=== PATIENT | female | born 1995 | race Caucasian/White ===

== ENCOUNTER 2025-06-09 01:10 | Emergency (ER) | payer MEDICAID, SELFPAY ==
[2025-06-09 01:11] VITALS: BP 112/81; PULSE 100; RESP 18; TEMP 36.9; O2SAT 97
[2025-06-09 01:13] VITALS: BMI 16.7
--- NOTE | 2025-06-09 01:41 | XR_ITS ---
Examination: Abdomen sonogram, Limited Date and time of exam: June 09, 2025, 0212 hours INDICATION: Right upper abdominal pain beginning 7 hours ago Technique: Real-time camargo scale transabdominal sonographic images of the upper abdomen obtained. Findings: Normal gallbladder Normal common bile duct 0.44 cm Pancreatic head 1.9 cm Liver 12.4 cm no liver lesions Normal hepatopetal portal venous flow Patent IVC IMPRESSION: Normal gallbladder
--- NOTE | 2025-06-09 01:47 | EDNOTE_ITS ---
ED Abdominal Pain RME/HPI General Chief Complaint: Abdominal Pain Stated complaint: EPIGASTRIC CHEST AREA PAIN RADIATING TO BACK Time seen by provider: 06/09/25 01:41 Arrival date/time: 06/09/25 01:10 29F with history of anxiety presents to ED with 1 day of RUQ/epigastric pain and N/V. This has happened before. Patient denies drug/alcohol use and dysuria. Limitations: no limitations Related Data Home Medications ?Medication ?Instructions ?Recorded ?Confirmed Loratadine ODT * (CLARITIN ODT *) 10 mg PO QDAY #0 tab s 09/12/14 Previous Rx's ?Medication ?Instructions ?Recorded vicodin 5/325 1 tab PO q4hprn pain #12 tab s 09/12/14 zofran 4mg odt 1 tab PO q4hprn nausea #8 un its 09/12/14 Allergies Allergy/AdvReac Type Severity Reaction Status Date / Time No Known Allergies Allergy Verified 06/09/25 01:12 Review of Systems Review of Systems Systems Reviewed: All systems reviewed, normal except as documented Gastrointestinal Gastrointestinal: Reports as per HPI, Reports abdominal pain, Reports nausea and Reports vomiting Past Medical History Social History SMOKING STATUS: Never smoker ED Exam General Limitations: Present no limitations General appearance: Present alert and in distress Head Head exam: Present atraumatic Neck Neck exam: Present normal inspection, full ROM and trachea midline Chest Chest inspection: Present normal inspection and symmetric chest wall rise Abdominal Exam Abdominal exam: Present soft Abdominal tenderness: Present RUQ and epigastrium Neurological Exam Neurological exam: Present alert and oriented X3 Psychiatric Psychiatric exam: Present normal affect and normal mood Skin Skin exam: Present warm, dry, intact and normal color Course Quality Measures none Orders Category Date Time Status US gall bladder Stat Exams 06/09/25 01:41 Taken CBC Stat Lab 06/09/25 01:53 Completed CMP [Comprehensive Metabolic Panel] Stat Lab 06/09/25 01:53 Completed Drug Screen,Urine Stat Lab 06/09/25 01:53 Completed HCG Qualitative,Urine Stat Lab 06/09/25 01:53 Completed Lipase Stat Lab 06/09/25 01:53 Completed Urinalysis, C/S if Indicated Stat Lab 06/09/25 01:53 Completed Morphine* Inj Med 06/09/25 01:41 Discontinued 4 mg IV X1 ONE Ondansetron Inj [Zofran Inj] Med 06/09/25 01:41 Discontinued 4 mg IVP X1 ONE Vital Signs Vital signs: Vital Signs Temperature 98.4 F 06/09/25 01:11 Pulse Rate 100 06/09/25 01:11 Respiratory Rate 18 06/09/25 01:11 Blood Pressure 112/81 06/09/25 01:11 Pulse Oximetry (%) 97 06/09/25 01:11 Oxygen Delivery Method Room Air 06/09/25 01:11 O2 at 97% on RA and WNLs Abdominal Pain MDM MDM Narrative MDM Narrative:: 29F with history of anxiety presents to ED with 1 day of RUQ/epigastric pain and N/V. This has happened before. Patient denies drug/alcohol use and dysuria. Physical exam reveals RUQ/epigastric tenderness. Patient is afebrile, alert, but appears to be in pain. Telerad US reveals... No leukocytosis. Lipase normal. CMP remarkable for el evated bili and LFTs. UA contaminated, but will not treat given no dysuria. HCG/tox screen neg. Upon reassessment, pain and nausea gone w/o any intervention. Patient does not want to wait for MRCP and will return in AM. Patient data External records reviewed:: None Clinical information provided by:: patient Social determinants that could affect healthcare access:: none Patient has the following chronic illnesses:: none How is presenting disease/condition affected by chronic disease/condition?: no chronic disease Evaluation data The following diagnostics were reviewed and interpreted by me:: lab results and radiology exam(s) Lab and/or radiology exams considered but not ordered:: ordered Interpretation Summary: above Medications / Prescriptions Medications or Prescriptions considered but not ordered:: ordered Medication administrations:: Medication Administration History Discontinued Medications Morphine Sulfate (Morphine Sulf Inj 4 Mg/Ml Vial) 4 mg IV X1 ONE Stop: 06/09/25 01:42 Last Admin: 06/09/25 04:00 Dose: Not Given Documented By: LAUREEN Non-Admin Reason: Cancelled by Provider Ondansetron HCl (Ondansetron Inj 2 Mg/Ml Inj 2 Ml) 4 mg IVP X1 ONE; Protocol Stop: 06/09/25 01:42 Last Admin: 06/09/25 04:00 Dose: Not Given Documented By: LAUREEN Non-Admin Reason: Cancelled by Provider above Consultations Consultation(s) initiated? (list below): No Diagnosis Differential diagnosis abdominal pain: abdominal pain, acute appendicitis, calculus of kidney, constipation, diverticulitis, gastroenteritis, pancreatitis, small bowel obstruction and other (biliary disease, elevated bilirubin) Most likely diagnosis given after review of the tests above:: elevated bilirubin Admission Indicated Admission indicated?: not indicated Admission Request Was there a request for admission?: No Disposition Plan Disposition Plan: Discharge Discharge Attestation Discharge Attestation: The patient and all family members were given an opportunity to ask questions and understood the discharge instructions. Discharge instructions specifically effects, indications for sooner follow up or return to the emergency department, and the expected course of current diagnosis. Patient condition: Stable Discharge Plan Plan Patient Disposition: HOME (Self Care) Discharge Disposition comment: Stable Prescriptions/Referrals Prescriptions/Med Rec: No Action Loratadine ODT * (CLARITIN ODT *) 10 MG/TAB TAB.RAPDIS 10 mg PO QDAY Qty: 0 vicodin 5/325 1 tab PO q4hprn pain Qty: 12 0RF zofran 4mg odt 1 tab PO q4hprn nausea Qty: 8 0RF Referrals: No Primary/Family,Physician [Primary Care Provider] - In 1 week Problem List Clinical Impression: Elevated bilirubin Patient/Caregiver Discharge Instructions Education Materials: Total Bilirubin (Blood) Additional Instructions: Please follow-up with PCP within 24-48 hours and return immediately if symptoms worsen. Return in AM for MRCP. Print Language: Irish Stand Alone Forms: Patient Portal Info Letter EVELYN/GINNY Supervising Physician GUILLERMO Supervising Physician: Dr. Schmidt
[2025-06-09 02:12] LABS: Collection Type, Urine Clean Catch
[2025-06-09 02:31] LABS: Basophils # (Auto) 0.1 Thou/mm3 (0.0-0.2); Basophils % (Auto) 1 % (0-2.5); Eosinophils # (Auto) 0.1 Thou/mm3 (0.0-0.5); Eosinophils % (Auto) 1 % (0-10); Hematocrit 43.0 % (36.0-46.0); Hemoglobin 14.4 g/dL (12.0-16.0); Immature Granulocytes Auto 0.02 Thou/mm3 (0.00-0.00); Lymphocytes # (Auto) 2.3 Thou/mm3 (1.0-4.8); Lymphocytes % (Auto) 23 % (10-50); Mean Corpuscular HGB Conc 33.5 g/dl (31.0-37.0); Mean Corpuscular Hemoglobin 30.1 pg (25.0-35.0); Mean Corpuscular Volume 90 fL (80-100); Monocytes # (Auto) 0.7 Thou/mm3 (0.0-0.8); Monocytes % (Auto) 7 % (0-12); Neutrophils # (Auto) 6.9 Thou/mm3 (1.8-7.7); Neutrophils % (Auto) 68 % (37-80); Nucleated Red Blood Cell # 0.00 Thou/mm3 (0.00-0.00); Nucleated Red Blood Cell % 0 /100 WBC (0); Platelet Count 298 Thou/mm3 (140-440); RDW Standard Deviation 37.8 fL (36.4-46.3); Red Blood Count 4.78 Miln/mm3 (4.00-5.20); White Blood Count 10.2 Thou/mm3 (3.6-11.0)
[2025-06-09 02:32] LABS: HCG Qualitative,Urine Negative
[2025-06-09 02:36] LABS: Alanine Aminotransferase 212 U/L (10-49); Albumin, Serum 5.0 gm/dL (3.5-5.0); Albumin/Globulin Ratio 2.1 (1.2-2.2); Alkaline Phosphatase 77 U/L (46-116); Anion Gap 10 (7-16); Aspartate Amino Transferase 316 U/L (0-34); BUN/Creatinine Ratio 11 Ratio (12-20); Bilirubin,Total 1.5 mg/dL (0.3-1.2); Blood Urea Nitrogen 10 mg/dL (9-23); Calcium 10.6 mg/dL (8.3-10.6); Calcium (Corrected) 10.6 mg/dL (8.5-10.1); Carbon Dioxide 27.3 mMol/L (20.0-31.0); Chloride 107 mMol/L (98-107); Creatinine (Component) 0.9 mg/dL (0.6-1.3); Estimated Creatinine Clearance 80.7 mL/min (>60); Globulin 2.4 gm/dL (2.3-3.5); Glucose 107 mg/dL (74-106); Lipase 36 U/L (12-53); Osmolality,Calculated 285 (275-295); Potassium 4.0 mMol/L (3.4-5.1); Sodium 144 mMol/L (136-145); Total Protein 7.4 gm/dL (5.7-8.2); eGFR > 60 See Note
[2025-06-09 02:49] LABS: Amorphous Crystals,Urine Present (Absent); Bilirubin,Urine Negative (Negative); Blood,Urine Negative (Negative); Color,Urine Yellow (Lt Yel-Yel); Culture Indicated,Urine Contaminated; Glucose, Urine Negative (Negative); Ketones,Urine Negative (Negative); Leukocyte Esterase,Urine Positive (Negative); Nitrite,Urine Negative (Negative); PH,Urine 8.5 (5.0-7.0); Protein,Urine 1+ (Neg - Trace); RBC,Urine 8 /hpf (0-3); Specific Gravity,Urine 1.020 (1.001-1.035); Squamous Epithelial Cell,Urine 54 /hpf (0-5); Urobilinogen,Urine 4.0 mg/dL (0.0-1.0); WBC,Urine 73 /hpf (0-5)
[2025-06-09 02:52] LABS: Clarity,Urine Turbid (Clear/Hazy)
--- NOTE | 2025-06-09 03:35 | PRELIM_ITS ---
Gallbladder ultrasound. June 09, 2025 0212 hours Clinical history: RUQ pain. Comparison: No prior study is available for comparison. Findings: Gallbladder wall is 2 mm thick. No pericholecystic fluid. No cholelithiasis or gallbladder sludge. Common bile duct is 4 mm in diameter. No choledocholithiasis. Pancreas is unremarkable to the extent visualized. Liver is 12.4 cm long. No focal hepatic lesion. No ascites. Main portal vein is antegrade. Inferior vena cava is patent. Impression: Normal exam. Report Electronically Signed By: Karthik Sandra 06/09/2025 3:35:06 AM [EST]
[2025-06-09 03:47] LABS: Amphetamine/Methamp Scrn,U Negative (Negative); Barbiturate Screen,Urine Negative (Negative); Benzodiazepines Screen,Urine Negative (Negative); Benzoylecgonine Screen, Ur Negative (Negative); Fentanyl Screen,Urine Negative (Negative); Opiate Screen,Urine Negative (Negative); THC Screen,Urine Negative (Negative)
[2025-06-09 04:03] VITALS: BP 109/77; PULSE 89; RESP 18; TEMP 37; O2SAT 100
== END 2025-06-09 04:11 | disposition home or self-care (01) ==
PROVIDERS: Physician Assistant; Emergency Provider Emergency Medicine
DX: R17 Unspecified jaundice (principal); R10.11 Right upper quadrant pain
CPT/HCPCS: 36415; 76705; 80053; 80307; 81001; 81025; 83690; 85025; 99283

== ENCOUNTER 2025-06-09 07:06 | Emergency (ER) | payer MEDICAID, SELFPAY ==
[2025-06-09 07:12] VITALS: BP 113/80; PULSE 104; RESP 18; TEMP 36.8; O2SAT 98; BMI 28.3
[2025-06-09 08:17] VITALS: BP 90/74; PULSE 87; RESP 16; TEMP 36.8; O2SAT 100
--- NOTE | 2025-06-09 14:52 | PD.EDADULT ---
ED General RME/HPI General Chief complaint: General Adult/Misc Complain Stated complaint: RETURNED FOR MRCP Time Seen by Provider: 06/09/25 07:08 Arrival date/time: 06/09/25 07:06 Limitations: no limitations RME / HPI RME / HPI narrative: 29 year old female with no stated medical history presents to the ED for MRCP. Patient states she was evaluated here yesterday for right upper abdominal pain with nausea and vomiting. States she had labs and ultrasound performed and was advised to return this morning for an MRCP. Patient states her pain remains unchanged, no new symptoms. Related Data Home Medications ?Medication ?Instructions ?Recorded ?Confirmed Loratadine ODT * (CLARITIN ODT *) 10 mg PO QDAY #0 tabs 09/12/14 Previous Rx's ?Medication ?Instructions ?Recorded vicodin 5/325 1 tab PO q4hprn pain #12 tabs 09/12/14 zofran 4mg odt 1 tab PO q4hprn nausea #8 units 09/12/14 Allergies Allergy/AdvReac Type Severity Reaction Status Date / Time No Known Allergies Allergy Verified 06/09/25 07:08 Review of Systems Review of Systems Systems Reviewed: All systems reviewed, normal except as documented Past Medical History Social History SMOKING STATUS: Former smoker ED Exam General Limitations: Present no limitations General appearance: Present alert and in no apparent distress Head Head exam: Present atraumatic Eye Eye exam: Present normal appearance, PERRL and EOMI ENT ENT exam: Present normal exam, normal oropharynx and mucous membranes moist Neck Neck exam: Present normal inspection, full ROM and trachea midline Chest Chest inspection: Present normal inspection and symmetric chest wall rise Respiratory Respiratory exam: Present normal lung sounds bilaterally Cardiovascular Cardiovascular exam: Present regular rate, normal rhythm and normal heart sounds Abdominal Exam Abdominal exam: Present soft and normal bowel sounds; Absent distention, tenderness, guarding, rebound or rigidity Extremities Exam Extremities exam: Present normal inspection and full ROM Neurological Exam Neurological exam: Present alert and oriented X3 Psychiatric Psychiatric exam: Present normal affect and normal mood Skin Skin exam: Present warm, dry, intact and normal color Course Quality Measures none Vital Signs Vital signs: Vital Signs Temperature 98.2 F 06/09/25 07:12 Pulse Rate 104 H 06/09/25 07:12 Respiratory Rate 18 06/09/25 07:12 Blood Pressure 113/80 06/09/25 07:12 Pulse Oximetry (%) 98 06/09/25 07:12 Oxygen Delivery Method Room Air 06/09/25 07:12 Pulse ox is 98% on room air which is adequate. Discharge Plan Plan Patient Disposition: HOME (Self Care) Patient condition on transfer: Stable Prescriptions/Referrals Prescriptions/Med Rec: No Action Loratadine ODT * (CLARITIN ODT *) 10 MG/TAB TAB.RAPDIS 10 mg PO QDAY Qty: 0 vicodin 5/325 1 tab PO q4hprn pain Qty: 12 0RF zofran 4mg odt 1 tab PO q4hprn nausea Qty: 8 0RF Referrals: No Primary/Family,Physician [Primary Care Provider] - In 1 week Problem List Clinical Impression: Gastroenteritis Patient/Caregiver Discharge Instructions Discharge Activity: activity as tolerated Additional Instructions: Follow-up with your regular doctor and discuss your GI problems. Consider a referral to a electric motorman for further evaluation. Print Language: Surinamese Stand Alone Forms: [employer] Award Info., Patient Portal Info Letter MDM Narrative MDM hospital course (for use when minimal MDM required): IVioleta, am scribing for and in the presence of Dr. Pettit. Patient refused labs to be redrawn today. I reviewed the labs from visit performed at 1AM today. The total bilirubin was 1.5, AST 316, and AST 212. Patient has no abdominal pain during my examination. I advised the patient follow up with her PCP or return if her abdominal pain returns or worsens. Clinical Information Provided by: patient Medical Records reviewed [facility] Meds/Rx considered, not ordered None Labs/Rad/Tests considered, not ordered None Chronic Illness/Social Conditions which may negatively complicate care or outcome(s)-explain: None or not applicable EKG EKG not done Labs Labs: see narrative above Imaging Imaging interpretation: none Medication Administration(s) none Diagnosis Diagnoses ruled out and/or further discussions: Gastroenteritis
== END 2025-06-09 09:18 | disposition home or self-care (01) ==
PROVIDERS: Emergency Provider Family Medicine
DX: K52.9 Noninfective gastroenteritis and colitis, unspecified (principal)
CPT/HCPCS: 36415; 80053; 99281